=== PATIENT | male | born 1955 | race Caucasian/White ===

== ENCOUNTER → 2020-07-06 | Outpatient (CLI) | payer OTHER ==
[~2020-07-06] MED LIST: ASPIRIN EC325 M1; ERYTHROMYCIN E3.5 G1 OPHTHALMIC; FISH OIL 1,0001 EAC5; FISH OIL 1,001000 M2 PO; FLOMAX0.4 MG PO; MULTIVITAMINS1 EAC7; VITAMIN C250 MG PO; VITAMINC500
== END ==
LOC: SJCVCIMAG 13:16
PROVIDERS: ATTEND Internal Medicine
DX: R00.0 Tachycardia, unspecified (principal); I49.3 Ventricular premature depolarization; I44.7 Left bundle-branch block, unspecified; R94.31 Abnormal electrocardiogram [ECG] [EKG]